=== PATIENT | male | born 1970 | race Caucasian/White ===

== ENCOUNTER 2023-04-11 16:12 | Emergency (ER) | payer OTHER ==
[2023-04-11] MEDS ORDERED: Aspirin 81 MG Tab.Chew PO ONE (16:20)
[2023-04-11] MEDS ORDERED: LORazepam 2 MG/ML SDV IM ONE (16:31)
[2023-04-11 16:45] LABS: TROPONIN I 5.1 pg/mL (4.0-60.3)
[2023-04-12] MEDS ORDERED: Sodium Chloride 0.9% 10 ML Syringe FLUSH PRN (05:48)
[2023-04-12] MEDS: Iopamidol 755 Mg/ML 100 ML Bottle IV SCH ×2 (09:30→09:42)
== END 2023-04-11 20:11 | disposition home or self-care (01) ==
LOC: FB.ED 16:12
DX: R07.9 Chest pain, unspecified (principal); E78.5 Hyperlipidemia, unspecified; E87.6 Hypokalemia; Z79.899 Other long term (current) drug therapy
CPT/HCPCS: 36415; 71045; 80053; 83880; 84484; 85025; 85379; 85610; 85730; 93005; 96372; 99285; A9270; J2060